=== PATIENT | male | born 1985 | race Caucasian/White ===

== ENCOUNTER 2017-04-26 14:35 | Emergency (ER) | payer BC ==
[2017-04-26 14:45] VITALS: BP 133/77; PULSE 87; TEMP 97.8; BMI 44.3
--- NOTE | 2017-04-26 14:54 | PDOC ---
History of Present Illness - General Chief Complaint: Chest Pain Stated Complaint: CHEST PAIN Time Seen by Provider: 04/26/17 14:53 - History of Present Illness Initial Comments: 04/26/17 14:53 Mr. Deng is a 32 yo male with a significant past medical history of HTN who presents to the emergency department complaining of a 24 hour history of burning pain down his chest and extending to his stomach. He says that this started last night after dinner and has continued through today. He tried to drink a red bull drink to "cool down" his throat but says this only made it worse. After this he tried cold water but continues to complain of pain. The patient denies shortness of breath, headache and dizziness. Denies fever, chills, nausea, vomit, diarrhea and constipation. Denies dysuria, frequency, urgency and hematuria. Allergies: NKDA Past surgical history: Hand surgery Social history: Social EtOH PMD - None Past History - Past Medical History Allergies/Adverse Reactions: Allergies Allergy/AdvReac Type Severity Reaction Status Date / Time No Known Allergies Allergy Verified 04/26/17 17:00 Home Medications: Ambulatory Orders Albuterol Sulfate Inhaler - [Ventolin Hfa Inhaler -] 1 - 2 inh PO Q4H 04/26/17 Asthma: Yes - Suicide/Smoking/Psychosocial Hx Smoking History: Never smoked Have you smoked in the past 12 months: No Information on smoking cessation initiated: No Hx Alcohol Use: No Drug/Substance Use Hx: No Substance Use Type: None Review of Systems - Review of Systems Comments:: 04/26/17 14:54 GENERAL/CONSTITUTIONAL: No fever or chills. No weakness. HEAD, EYES, EARS, NOSE AND THROAT: +Throat burning extending down chest to stomach. No change in vision. No ear pain or discharge. No sore throat. CARDIOVASCULAR: No chest pain or shortness of breath RESPIRATORY: No cough, wheezing, or hemoptysis. GASTROINTESTINAL: No nausea, vomiting, diarrhea or constipation. GENITOURINARY: No dysuria, frequency, or change in urination. MUSCULOSKELETAL: No joint or muscle swelling or pain. No neck or back pain. SKIN: No rash NEUROLOGIC: No headache, vertigo, loss of consciousness, or change in strength/ sensation. ENDOCRINE: No increased thirst. No abnormal weight change HEMATOLOGIC/LYMPHATIC: No anemia, easy bleeding, or history of blood clots. ALLERGIC/IMMUNOLOGIC: No hives or skin allergy. *Physical Exam - Vital Signs Last Vital Signs Temp Pulse Resp BP Pulse Ox 97.8 F 87 18 133/77 98 04/26/17 14:42 04/26/17 14:42 04/26/17 14:42 04/26/17 14:42 04/26/17 14:42 - Physical Exam Comments: 04/26/17 14:54 GENERAL: Awake, alert, and fully oriented, in no acute distress HEAD: No signs of trauma, normocephalic, atraumatic EYES: PERRLA, EOMI, sclera anicteric, conjunctiva clear ENT: Auricles normal inspection, hearing grossly normal, nares patent, oropharynx clear without exudates. Moist mucosa NECK: Normal ROM, supple, no lymphadenopathy, JVD, or masses LUNGS: No distress, speaks full sentences, clear to auscultation bilaterally HEART: Regular rate and rhythm, normal S1 and S2, no murmurs, rubs or gallops, peripheral pulses normal and equal bilaterally. ABDOMEN: Soft, nontender, normoactive bowel sounds. No guarding, no rebound. No masses EXTREMITIES: Normal inspection, Normal range of motion, no edema. No clubbing or cyanosis. NEUROLOGICAL: Cranial nerves II through XII grossly intact. Normal speech, normal gait, no focal sensorimotor deficits SKIN: +Darkening of skin noted to neck and axilla in diabetic pattern. Warm, Dry , normal turgor. ED Treatment Course - LABORATORY CBC & Chemistry Diagram: 04/26/17 16:31 04/26/17 17:50 Medical Decision Making - Medical Decision Making 04/26/17 18:23 Patient presents with classic heartburn symptoms for 24 hours, r/o cardiac process. EKG normal rate, normal rhythm, normal access, normal intervals; no acute ST segment elevations. Normal EKG. Cardiac labs negative. Will discharge to home with instructions to establish PCP outpatient and follow-up. *DC/Admit/Observation/Transfer Diagnosis at time of Disposition: Gastroesophageal reflux disease Qualifiers: Esophagitis presence: esophagitis presence not specified Qualified Code(s): K21.9 - Gastro-esophageal reflux disease without esophagitis; K21.9 - Gastro- esophageal reflux disease without esophagitis; K21.9 - Gastro-esophageal reflux disease without esophagitis - Discharge Dispostion Disposition: HOME - Referrals Referrals: STAFF,NOT ON [Primary Care Provider] - Taylor Romero MD [Staff Physician] - - Patient Instructions Printed Discharge Instructions: DI for Gastroesophageal Reflux Disease (GERD), GERD Diet Additional Instructions: We apologize you felt ill today. We hope that you feel better soon. Please return if any exacerbation of symptoms or other concerning developments.
--- NOTE | 2017-04-26 15:11 | PDOC ---
Attending Attestation - Resident Resident Name: PrasannajohnnycoreyHaseeb - ED Attending Attestation I have performed the following: I have examined & evaluated the patient, The case was reviewed & discussed with the resident, I agree w/resident's findings & plan, Exceptions are as noted - HPI HPI: 04/26/17 15:10 CHest Pain - Physicial Exam PE: 04/26/17 15:10 VSS, NAD - Medical Decision Making 04/26/17 15:[address] Escamilla's Assessment and Plan <Tom Barth - Last Filed: 04/26/17 15:09> - Physicial Exam PE: 04/26/17 15:49 GENERAL: (+) obese. Awake, alert, and fully oriented, in no acute distress HEAD: No signs of trauma, normocephalic, atraumatic EYES: PERRLA, EOMI, sclera anicteric, conjunctiva clear ENT: Auricles normal inspection, hearing grossly normal, nares patent, oropharynx clear without exudates. Moist mucosa NECK: Normal ROM, supple, no lymphadenopathy, JVD, or masses LUNGS: No distress, speaks full sentences, clear to auscultation bilaterally HEART: Regular rate and rhythm, normal S1 and S2, no murmurs, rubs or gallops, ABDOMEN: Soft, nontender, normoactive bowel sounds. No guarding, no rebound. No masses EXTREMITIES: Normal inspection, Normal range of motion, no edema. No clubbing or cyanosis. NEUROLOGICAL: Cranial nerves II through XII grossly intact. Normal speech, normal gait, no focal sensorimotor deficits SKIN: Warm, Dry, normal turgor. - Medical Decision Making 04/26/17 15:52 Documentation prepared by Bryanna De Dios, acting as medical front desk coordinator for Tom Barth DO <Bryanna De Dios - Last Filed: 04/26/17 15:52>
[2017-04-26] MEDS ORDERED: RANITIDINE HCL 150 MG TABLET (FP) PO ONE (15:12)
[2017-04-26] MEDS ORDERED: LIDOCAINE VISCOUS 2% ORAL/TOP 20 ML UNIT-DOSE CUP MM ONE (15:12)
[2017-04-26] MEDS ORDERED: MAG HYDROX/AL HYDROX/SIMETH 30 ML UNIT-DOSE CUP PO ONE (15:12)
[2017-04-26 16:46] LABS: BASOPHIL 0.4 % (0-2.0); EOSINOPHIL 2.7 % (0-4.5); MCH 28.9 pg (25.7-33.7); MEAN CELL VOLUME 87.7 fl (80-96); MEAN PLT VOLUME 9.1 fl (7.5-11.1); NEUTROPHILS 54.8 % (42.8-82.8); PLATELET COUNT 200 K/MM3 (134-434); RDW 13.9 % (11.9-15.9); WHITE BLOOD COUNT 7.8 K/mm3 (4.0-10.0)
[2017-04-26 18:37] LABS: ALBUMIN 3.5 g/dl (3.4-5.0); ANION GAP 10 (8-16); CALCIUM 8.7 mg/dL (8.5-10.1); CO2 25 mmol/L (21-32); GLUCOSE,RANDOM 75 mg/dL (74-106); SGPT/ALT 67 U/L (12-78)
[2017-04-26 18:39] LABS: ALK PHOS 65 U/L (45-117); BILIRUBIN,TOTAL 0.4 mg/dL (0.2-1.0); CREATININE 0.8 mg/dL (0.7-1.3); SGOT/AST 43 U/L (15-37); TOT PROT 6.7 g/dl (6.4-8.2)
[2017-04-26 18:49] LABS: TROPONIN I 0.02 ng/ml (0.00-0.05)
--- NOTE | 2017-04-27 22:37 | EKG ---
Test Reason : Blood Pressure : / mmHG Vent. Rate : 085 BPM Atrial Rate : 085 BPM P-R Int : 154 ms QRS Dur : 088 ms QT Int : 366 ms P-R-T Axes : 055 045 031 degrees QTc Int : 435 ms NORMAL SINUS RHYTHM SEPTAL INFARCT , AGE UNDETERMINED CANNOT BE EXCLUDED ABNORMAL ECG NO PREVIOUS ECGS AVAILABLE NO CLINICAL INFORMATION IS AVAILABLE REPEAT EKG IF CLINICALLY INDICATED Confirmed by MADHAV GERARDO MD ([id number]) on 04/27/2017 10:36:47 PM Referred By: Confirmed By:MADHAV GERARDO MD
== END 2017-04-26 19:37 | disposition home or self-care (01) ==
LOC: SUPCPDRO 14:35 → JER 14:35
DX: K21.9 Gastro-esophageal reflux disease without esophagitis (principal); J45.909 Unspecified asthma, uncomplicated
CPT/HCPCS: 36415; 71020-TC; 80053; 82550; 82553; 84484; 85025; 93005; 93010; 99284-25